=== PATIENT | female | born 1995 | race African-American/Black ===

== ENCOUNTER 2019-06-07 23:57 | Inpatient (IN) ==
[2019-06-08] MEDS ORDERED: HYDROXYZINE IM PRN (00:04)
[2019-06-08] MEDS ORDERED: M-M-R II VACCINE SUBQ ONE (00:04)
[2019-06-08] MEDS ORDERED: MINERAL OIL PO PRN (00:04)
[2019-06-08] MEDS ORDERED: AMBIEN PO PRN (00:04)
[2019-06-08] MEDS ORDERED: BENADRYL IV PRN (00:04)
[2019-06-08] MEDS ORDERED: CYTOTEC PO PRN (00:04)
[2019-06-08] MEDS ORDERED: PERI MEDS (DERMOPLAST/NUPERCAINAL/TUCKS) MISC PRN (00:04)
[2019-06-08] MEDS ORDERED: BENADRYL PO PRN (00:04)
[2019-06-08] MEDS ORDERED: XYLOCAINE-MPF 1% INJ PRN (00:04)
[2019-06-08] MEDS ORDERED: ATARAX PO PRN (00:04)
[2019-06-08] MEDS ORDERED: PITOCIN IM PRN (00:04)
[2019-06-08] MEDS ORDERED: BOOSTRIX VACCINE IM ONE (00:04)
[2019-06-08] MEDS ORDERED: PITOCIN 20 UNITS/NS 20 UNITS/1,000 ML IV.SOLN IV SCH (00:15)
[2019-06-08 01:08] LABS: BASO# 0.01 X1000 (0.0-0.2); BASO% 0.1 % (0.0-0.8); EOS# 0.05 X1000 (0.0-0.7); EOS% 0.6 % (0.0-10.0); HEMATOCRIT 28.2 % (37.0-47.0); HEMOGLOBIN 8.7 g/dL (12.0-16.0); IMM GRAN# 0.03 X1000 (0.0-0.04); IMM GRAN% 0.4 % (0.0-0.5); LYMPH# 1.68 X1000 (1.2-3.4); LYMPH% 21.6 % (20.5-51.1); MCH 26.6 PG (27-31); MCHC 30.9 g/dL (33-37); MCV 86.2 FL (81-99); MONO# 0.53 X1000 (0.11-0.59); MONO% 6.8 % (1.7-9.3); MPV 11.4 FL (7.4-10.4); NEUT# 5.48 X1000 (1.4-6.5); NEUT% 70.5 % (42.2-75.2); PLT 214 X1000 (130-400); RBC 3.27 XMIL (4.2-5.4); RDW 13.8 % (11.5-14.5); WBC 7.78 X1000 (4.8-10.8)
[2019-06-08] MEDS: MOTRIN PO PRN ×3 (01:47→19:22)
[2019-06-08 01:59] LABS: RPR NON-REACTIVE (NONREACTIVE)
[2019-06-08 02:21] LABS: RAPID HIV PRESUMPTIVE NEGATIVE; RUBELLA SCREEN NON IMMUNE (IMMUNE)
[2019-06-08 04:21] LABS: URINE SOURCE VOIDED
[2019-06-08 04:36] LABS: UR AMPHETAMINES QUAL NONE DETECTED (NONE DETECT); UR BARBITUATES QUAL NONE DETECTED (NONE DETECT); UR BENZODIAZEPIN QUAL NONE DETECTED (NONE DETECT); UR CANNABINOIDS QUAL NONE DETECTED (NONE DETECT); UR COCAINE QUAL NONE DETECTED (NONE DETECT); UR METHADONE QUAL NONE DETECTED (NONE DETECT); UR OPIATES QUAL NONE DETECTED (NONE DETECT); UR OXYCODONE QUAL NONE DETECTED (NONE DETECT); UR PCP QUAL NONE DETECTED (NONE DETECT)
[2019-06-08 04:59] LABS: BILIRUBIN URINE SMALL (NEGATIVE); COLOR ORANGE; GLUCOSE URINE 500 mg/dL (NEGATIVE); KETONE URINE NEGATIVE (NEGATIVE); TURBIDITY URINE HAZY (CLEAR)
[2019-06-08 05:00] LABS: BLOOD URINE NEGATIVE (NEGATIVE); LEUKOCYTES URINE NEGATIVE (NEGATIVE); NITRITE URINE NEGATIVE (NEGATIVE); PH URINE 6.5; PROTEIN URINE 100 mg/dL (NEGATIVE); SP GRAVITY URINE 1.025; UROBILINOGEN URINE 2 mg/dL (NORMAL)
--- NOTE | 2019-06-08 11:58 | HISTORY AND PHYSICAL ---
HISTORY OF PRESENT ILLNESS: The patient is a 23-year-old black female, G3, P3, Term , that presented to the hospital after delivering at home. The patient stated that she started anne and did not realize that she was in labor. She delivered a spontaneous vaginal delivery at home and was brought to hospital by ambulance. The patient denies any issues. She is having light bleeding. course was started at 29 weeks for her first visit. Her was complicated with gonorrhea that was treated but otherwise uneventful. PAST MEDICAL HISTORY: Significant for history of delivery, anemia, GERD, history of preeclampsia. PAST SURGICAL HISTORY: Denied. ALLERGIES: No known drug allergies. MEDICATIONS: Phenergan and vitamins. FAMILY HISTORY: Denied. PHYSICAL EXAMINATION: VITAL SIGNS: Blood pressure is 138/69, pulse is normal. This morning, her blood pressure was 132/74, pulse of 89, temperature 96.6. HEENT: Unremarkable. LUNGS: Clear to auscultation. CARDIOVASCULAR: Regular rate. ABDOMEN: Soft. Uterus was firm. Lochia was minimal. EXTREMITIES: Normal. DIAGNOSTIC DATA: White count was 7.78, hemoglobin of 8.7, platelet count of 214. Urine was negative. Toxicology was negative. Glucose screen 78. RPR nonreactive. Rubella nonimmune. ASSESSMENT: The patient had spontaneous vaginal delivery at home, brought in via EMS. The patient is stable. No issues to report. PLAN: Admit to the hospital for care. cc: Fely Rivas MD MTDD
[2019-06-08 17:54] LABS: HIV ANTIBODY SCREEN SEE COMMENTS
[2019-06-09] MEDS ORDERED: AYR NASAL SPRAY NAS PRN (03:01)
[2019-06-09] MEDS: MOTRIN PO PRN ×2 (03:04→10:16)
[2019-06-09] MEDS: PERICOLACE PO SCH ×2 (03:58→22:33)
[2019-06-09 05:13] LABS: BASO# 0.01 X1000 (0.0-0.2); BASO% 0.2 % (0.0-0.8); EOS# 0.08 X1000 (0.0-0.7); EOS% 1.7 % (0.0-10.0); HEMATOCRIT 27.5 % (37.0-47.0); HEMOGLOBIN 8.2 g/dL (12.0-16.0); LYMPH% 31.6 % (20.5-51.1); MCH 25.9 PG (27-31); MCHC 29.8 g/dL (33-37); MONO# 0.46 X1000 (0.11-0.59); MONO% 9.7 % (1.7-9.3); MPV 11.4 FL (7.4-10.4); NEUT% 56.8 % (42.2-75.2); PLT 180 X1000 (130-400); RBC 3.16 XMIL (4.2-5.4); RDW 14.1 % (11.5-14.5); WBC 4.75 X1000 (4.8-10.8)
--- NOTE | 2019-06-09 08:03 | OB/GYN PROGRESS NOTE ---
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 Progress Note: Vital Signs - 24 hr 06/08/19 08:15 06/08/19 16:00 06/08/19 19:27 Temperature 96.6 F L 97.2 F L 96.8 F L Pulse Rate 89 88 82 Respiratory Rate 18 18 16 Blood Pressure 133/74 118/74 122/74 O2 Sat by Pulse Oximetry 98 99 98 06/08/19 23:29 06/09/19 04:00 06/09/19 07:39 Temperature 96.7 F L 97.6 F 97.0 F L Pulse Rate 79 80 66 Respiratory Rate 18 16 16 Blood Pressure 109/60 118/71 131/84 O2 Sat by Pulse Oximetry 97 97 98 Laboratory Results - last 24 hr 06/08/19 06/09/19 02:21 04:52 WBC 4.75 L RBC 3.16 L Hgb 8.2 L Hct 27.5 L MCV 87.0 MCH 25.9 L MCHC 29.8 L RDW Std Deviation 14.1 Plt Count 180 MPV 11.4 H Immature Gran % (Auto) 0.0 Neut % (Auto) 56.8 Lymph % (Auto) 31.6 [place] % (Auto) 9.7 H Eos % (Auto) 1.7 Baso % (Auto) 0.2 Immature Gran # (Auto) 0.00 Neut # (Auto) 2.70 Lymph # (Auto) 1.50 [place] # (Auto) 0.46 Eos # (Auto) 0.08 Baso # (Auto) 0.01 HIV 1&2 Antibody Screen SEE COMMENTS S: Day #2 ( sans lacerations 11-29 at 2223) now UDS, HIV negative on admission She presented for PNC at 29 weeks to [facility], and was dated on earlier sono LAVELLE 06-24-2019, with atepartum course including elevated OGT, nl 3-hr, two previous deliveries, nl baseline PIH labs, Rocephin for follicular cellulitis, of buttocks 05-16-2019, GC with neg KHUSHI 05-16-2019. S: She notes right shoulder and upper arm "throbbing pain" without weakness or numbness of arm or hand. No c/o NVFC dysuria, unrelieved pain, breast pain, or depressed mood. O: Bottle of Promethazine noted at bedside overnight and sent to pharmacy with nursing concern that the patient had been drowsy due to excessive self-dosing VSS AF. BPs 130s/80s Anemia noted above, asymptomatic EXAM Drowsy, oriented HEENT nl] Chest nl resp effort CVS RRR Abd soft fundus firm, nontender, U- Ext no tenderness or excessive edema All Active Problems Anemia of mother in , condition (Acute) Insufficient care (Acute) Other specified complication of , with delivery (Acute) Intrauterine (Acute) PLAN: Postpartun care and instruction Ibuprofen, local heat to shoulder and upper arm PRN SW consult placed Home meds in pharmacy depression surveillance. No signs of depression at this time Hx HTN. BPs are not elevated at this time Consider discharge tomorrow after SW consult. BTL papers signed according to notes from [place].
[2019-06-09 10:27] LABS: HEPATITIS B SURFACE ANTIGEN SEE COMMENTS
[2019-06-09] MEDS ORDERED: PERICOLACE PO SCH (21:00)
[2019-06-10] MEDS: MOTRIN PO PRN (02:37)
[2019-06-10 08:40] VITALS: BP 123/74
--- NOTE | 2019-06-10 09:05 | OB/GYN PROGRESS NOTE ---
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 Progress Note: Vital Signs - 24 hr 06/09/19 15:41 06/09/19 19:28 06/09/19 23:58 Temperature 97.2 F L 97.4 F L 96.5 F L Pulse Rate 93 H 95 H 92 H Respiratory Rate 16 16 18 Blood Pressure 124/70 120/69 124/69 O2 Sat by Pulse Oximetry 99 97 97 06/10/19 08:38 Temperature 98 F Pulse Rate 85 Respiratory Rate 18 Blood Pressure 123/74 O2 Sat by Pulse Oximetry 97 Laboratory Results - last 24 hr 06/08/19 01:01 Hep Bs Antigen SEE COMMENTS Day #3 Day #3 ( sans lacerations 06-07 at 2223) now UDS, HIV, HepBsAg, RPR and UDS all negative on admission She presented for PNC at 29 weeks to [facility] for 6 visits, and was dated on earlier sono LAVELLE 06-24-2019, with atepartum course including elevated OGT, nl 3-hr, two previous deliveries, nl baseline PIH labs, Rocephin for follicular cellulitis, of buttocks 05-16-2019, GC with neg KHUSHI 05-16-2019. S: Today she notes nasal congestion without fever, chills, or cough; and contin ued right shoulder and upper arm "throbbing pain" without weakness or numbness of arm or hand. According to the charge nurse the unit is not yet configured for patients to board, and she was hoping to remain while her undergoes antibiotic treatment given her lack of transportation O: VSS AF. BPs 130s/80s Anemia noted above, asymptomatic EXAM NAD. Discouraged HEENT nl] Chest nl resp effort; clear to bases CVS RRR Abd soft fundus firm, nontender, U-2 Ext no tenderness or excessive edema. Upper arm strength and ROM normal All Active Problems Anemia of mother in , condition (Acute) Insufficient care (Acute) Other specified complication of , with delivery (Acute) Intrauterine (Acute) PLAN: care and instruction and full discharge meds, limitations, followup and precautions given./ Plan discharge this afternoon after healthcare sales representative rounds on her . She declines Ibuprofen Rx SW consult placed Home meds in pharmacy Decongestant prn nasal symptoms No signs of depression at this time. She plans care with [facility] BTL papers signed according to notes from [place].
[2019-06-10] MEDS ORDERED: SUDAFED PO PRN (09:48)
--- NOTE | 2019-06-11 18:36 | DISCHARGE SUMMARY ---
ADMISSION DATE: 06/07/2019 DISCHARGE DATE: 06/10/2019 ADMITTING DIAGNOSIS: Home delivery at term. FINAL DISCHARGE DIAGNOSES: 1. Term home delivery with obstetric complications. 2. Insufficient care. 3. Anemia of . 4. Previous deliveries associated with severe preeclampsia. HISTORY OF PRESENT ILLNESS: Ms Ribera is now 3, para 0, 2, 0, 3, female admitted 06/08/2019 after a home delivery at 2223 hours on 06/07/2019. The patient stated that she was not aware that her labor had progressed to the point of delivery. Admitting labs included negative urine drug screen, HIV. course was complicated by late registration at 29 weeks to [facility] with six visits there and ultrasound due date 06/24/2019, placing her at 37+ weeks. Antepartum course included elevated OGT, normal three hour, normal baseline PIH labs, and a dose of Rocephin in early May for follicular cellulitis of the buttocks. She underwent treatment for gonorrhea with a negative test of cure 05/16/2019. There was no record of group B strep screening and the patient could not recall the results of strep screening. Her course was unremarkable from an obstetric standpoint. She had normal vital signs. Normal blood pressure. Normal lochia and had not experienced lacerations during the home delivery. She complained of right arm and shoulder pain without weakness or numbness, and on the second day , complained of some nasal congestion. On her first hospital day, she was found to have a bottle of Phenergan at the bedside and nursing staff suspected that she was dosing excessively due to her degree of drowsiness. This was sent to the pharmacy with resolution in her drowsiness. Her child remained in nursery for IV antibiotics and presumptive pneumonia. DISPOSITION: At this dictation, Yesica is doing well. Final hemoglobin is 8.2, platelets 180,000, asymptomatic. Fasting glucose was 78. Urine was clear. Toxicology negative. RPR, chlamydia, hepatitis B surface antigen, and HIV were all negative. Rubella returned nonimmune. While discouraged at having to be discharged without her child, she did not display any signs or symptoms of depression. Social Work consult was obtained as she expressed concern over inadequate transportation. She was discharged home in good condition with medications described above and plan to return to [facility] for care within six weeks or at any time for heavy vaginal bleeding, unrelieved pain, fever exceeding 100.4 degrees, breast fullness or redness despite nonpharmacologic suppression of . Medications will include vitamins once daily, ferrous sulfate 325 mg one tablet twice daily #60 with two refills and acetaminophen over the counter. She declined a prescription of ibuprofen. She was given a dose of Sudafed for nasal congestion and would continue this as needed at home. cc: Fely Rivas MD
== END 2019-06-10 17:07 | disposition home or self-care (01) | DRG 776 ==
LOC: LD 23:57
PROVIDERS: ADMIT Specialist; ATTEND Specialist